=== PATIENT | female | born 2000 | race Caucasian/White ===

== ENCOUNTER → 2021-09-02 | Outpatient (CLI) | payer OTHER ==
--- NOTE | 2021-09-02 14:55 | US ---
EXAMINATION TYPE: US pelvic complete DATE OF EXAM: 09/02/2021 COMPARISON: NONE CLINICAL HISTORY: N92.6 Irregular menstruation. Pt states irregular menses TECHNIQUE: Transabdominal (TA). Transabdominal sonographic images of the pelvis were acquired. Date of LMP: 08/06/2021 EXAM MEASUREMENTS: Uterus: 9.1 x 3.2 x 4.7 cm Endometrial Stripe: 0.5 cm Right Ovary: 3.7 x 3.5 x 2.0 cm Left Ovary: 4.3 x 2.5 x 2.4 cm 1. Uterus: Anteverted wnl 2. Endometrium: wnl 3. Right Ovary: Follicles are noted. 4. Left Ovary: Follicles are noted. 5. Bilateral Adnexa: wnl 6. Posterior cul-de-sac: wnl IMPRESSION: Unremarkable pelvic ultrasound
== END | disposition home or self-care (01) ==
LOC: RADUSWWP 12:33
PROVIDERS: ATTEND Obstetrics & Gynecology
DX: N92.6 Irregular menstruation, unspecified (principal)
CPT/HCPCS: 76856

== ENCOUNTER → 2021-12-30 | Outpatient (CLI) | payer OTHER ==
--- NOTE | 2021-12-30 10:41 | US ---
EXAMINATION TYPE: Transabdominal DATE OF EXAM: 12/30/2021 10:27 AM COMPARISON: NONE CLINICAL HISTORY: Z36.89 CONFIRM GESTATIONAL AGE. Dates EXAM PERFORMED: Transabdominal (TA) EXAM MEASUREMENTS: GESTATIONAL AGE / DATING Physician Established: Not yet established Dates by LMP: (11 weeks/6 days) EDC: 07/15/2022 Dates by First Scan: No previous this is first scan Dates by Current Scan for: (10 weeks/3 days) EDC: 07/15/2022 MATERNAL ANATOMY Uterus: 12.1 x 8.3 x 6.8 cm Right Ovary: 2.8 x 1.8 x 1.8 cm Left Ovary: 3.5 x 2.0 x 2.1 cm Post CDS / Adnexa: no free fluid Presence of free fluid: no Presence of corpus luteal cyst: no Presence of subchorionic bleed: no GESTATION / SURVEY CRL: 3.4 cm (10 weeks/3 days) MSD: seen, not measured Yolk Sac (normal less than 6mm): 3.4 mm Heart Rate: 169 bpm Rhythm: Normal IUP: Viable IUP Nuchal Translucency 10-14wks (normal less than 3mm): 0.6 mm Age Appropriate Anatomy Cord Insertion: Too early to visualize Limbs: Visualized Calvarium: Visualized Date of LMP: 10/08/2021, G1 Beta HcG (if available): Not available at this time Single live IUP measuring 10 weeks 3 days. IMPRESSION: 1. Single intrauterine gestation estimated at 10 weeks 3 days gestation based on crown-rump length. C ardiac activity measures 169 bpm.
== END | disposition home or self-care (01) ==
LOC: RADUSWWP 09:59
PROVIDERS: ATTEND Obstetrics & Gynecology
DX: Z36.89 Encounter for other specified antenatal screening (principal); Z3A.10 10 weeks gestation of pregnancy
CPT/HCPCS: 76801; 76813

== ENCOUNTER 2022-07-25 14:11 | Inpatient (IN) | payer OTHER ==
[2022-07-25] MEDS ORDERED: LIDOCAINE 0.5% (PF) 5 MG/ML (50 ML SDV) SQ PRN (15:04)
[2022-07-25] MEDS ORDERED: CARBOPROST TROMETHAMINE 250 MCG/ML 1 ML AMP IM PRN (15:04)
[2022-07-25] MEDS ORDERED: METHYLERGONOVINE 0.2 MG/ML 1 ML AMP IM PRN (15:04)
[2022-07-25] MEDS ORDERED: OXYTOCIN 10 UNIT/ML 1 ML VIAL IM PRN (15:04)
[2022-07-25] MEDS ORDERED: TERBUTALINE 1 MG/ML VIAL SQ PRN (15:04)
[2022-07-25] MEDS ORDERED: LACTATED RINGERS 1,000 ML IV SCH (15:15)
[2022-07-25 16:37] LABS: Basophils % (A) 0 %; Eosinophils # (A) 0.1 k/uL (0-0.7); Eosinophils % (A) 0 %; HCT 36.4 % (34.0-46.0); HGB 12.1 gm/dL (11.4-16.0); Lymphocytes # (A) 1.2 k/uL (1.0-4.8); Lymphocytes % (A) 8 %; MCH 28.7 pg (25.0-35.0); MCHC 33.2 g/dL (31.0-37.0); MCV 86.6 fL (80.0-100.0); Mean Platelet Volume 9.9; Monocytes # (A) 0.6 k/uL (0-1.0); Monocytes % (A) 4 %; Neutrophils # (A) 13.5 k/uL (1.3-7.7); Neutrophils % (A) 87 %; Platelet Count 207 k/uL (150-450); RDW 13.4 % (11.5-15.5); WBC 15.6 k/uL (3.8-10.6)
[2022-07-25] MEDS: BUTORPHANOL 1 MG/ML 1 ML VIAL IV PRN ×2 (17:06→19:10)
--- NOTE | 2022-07-25 19:23 | P.HPOB ---
History of Present Illness H&P Date: 07/25/22 Chief Complaint: Contractions. This patient is a pleasant 22-year-old 1 para 0 female estimated date of confinement 07/24/2022 estimated gestational age 40 and one sevenths weeks who presents to labor and delivery with complaints of painful contractions. Patient was seen in the office yesterday by Dr. Headley was found to be 1 cm dilated and is now 3 cm dilated early labor. care complicated by marginal previa earlier in the which did resolve. appears otherwise uncomplicated. Review of Systems Genitourinary: Reports Menstruation: Reports amenorrhea Past Medical History Past Medical History: No Reported History History of Any Multi-Drug Resistant Organisms: None Reported Past Surgical History: No Surgical Hx Reported Past Anesthesia/Blood Transfusion Reactions: No Reported Reaction Past Psychological History: No Psychological Hx Reported Smoking Status: Never smoker Past Alcohol Use History: None Reported Past Drug Use History: None Reported - Past Family History Father History Unknown: Yes Family Medical History: No Reported History Medications and Allergies Home Medications Medication Instructions Recorded Confirmed Type Vit No.179/Iron/Folic 1 each PO DAILY 07/25/22 07/25/22 History [ Tablet] Allergies Allergy/AdvReac Type Severity Reaction Status Date / Time No Known Allergies Allergy Verified 07/25/22 14:22 Exam Vital Signs Temp Pulse Resp BP 07/25/22 16:07 97.1 F L 85 14 115/65 Intake and Output 07/25/22 07/25/22 07/25/22 06:59 14:59 22:59 Other: Weight 74.843 kg 74.843 kg - OBG Physical Exam Abdomen: bowel sounds normal, no diffuse tenderness, no bruit present, no guarding noted, no hepatomegaly, no splenomegaly, no mass Vulva: both: normal Vagina: normal moisture, no discharge Cervix: Cervix is 3-4 cm dilated with thick meconium-stained fluid Uterus: enlarged Results labs show she is A positive, rubella immune, hepatitis BE's negative, HIV is nonreactive, RPR is nonreactive, group B strep was negative Result Diagrams: 07/25/22 15:22 Abnormal Lab Results - Last 24 Hours (Table) 07/25/22 Range/Units 15:22 WBC 15.6 H (3.8-10.6) k/uL Neutrophils # 13.5 H (1.3-7.7) k/uL Assessment and Plan Assessment: This is a pleasant 22-year-old 1 para 0 female 40 and one sevenths weeks gestation in early active labor. Patient also has meconium-stained amniotic fluid with category 1 heart tones at this time. Plan is anticipate vaginal delivery. I did discuss pain control options with the patient and she states that this time she only wants Stadol. (1) Postmaturity , 40-42 weeks gestation Current Visit: Yes Status: Acute Code(s): O48.0 - POST-TERM SNOMED Code(s): 77322597033258 (2) Normal labor Current Visit: Yes Status: Acute Code(s): O80 - ENCOUNTER FOR FULL-TERM UNCOMPLICATED DELIVERY; Z37.9 - OUTCOME OF DELIVERY, UNSPECIFIED SNOMED Code(s): 91555831 (3) Meconium in amniotic fluid Current Visit: Yes Status: Acute Code(s): P96.83 - MECONIUM STAINING SNOMED Code(s): 766569353
--- NOTE | 2022-07-25 20:11 | P.PN ---
Progress Note - Text Progress Note Date: 07/25/22 Patient has progressed to 8-9 cm -1 station. She continues to decline any pain medications other than Stadol. She is unfortunately quite out of control and wanting to push. I did explain to her that pushing without being completely dilated will cause swelling of the cervix. Of note she did have an ultrasound yesterday in the office were Dr. Headley noted the head to be occiput posterior presentation. I explained this once again to the patient. She understands that if we have any concerns for heart tones or she does not progress with the cervix continues to swell it would require section for delivery. heart tones are reassuring at this time. We'll continue to watch closely
[2022-07-25] MEDS ORDERED: bisacodyL 10 MG SUPP RECTAL PRN (21:08)
[2022-07-25] MEDS ORDERED: diphenhydrAMINE 50 MG/ML 1 ML VIAL IVP PRN (21:08)
[2022-07-25] MEDS ORDERED: BENZOCAINE/MENTHOL SPRAY 1 GM/SPRAY AEROSOL TOPICAL PRN (21:08)
[2022-07-25] MEDS ORDERED: HYDROCORTISONE 2.5% RECTAL CREAM 30 GM TUBE RECTAL PRN (21:08)
[2022-07-25] MEDS ORDERED: LANOLIN CREAM 5 GM TUBE TOPICAL PRN (21:08)
[2022-07-25] MEDS ORDERED: diphenhydrAMINE 25 MG CAP PO PRN (21:08)
[2022-07-25] MEDS ORDERED: ZOLPIDEM 5 MG TAB PO PRN (21:08)
[2022-07-25] MEDS ORDERED: ACETAMINOPHEN TAB 325 MG TAB PO PRN (21:08)
[2022-07-25] MEDS ORDERED: SIMETHICONE 80 MG CHEWABLE PO PRN (21:08)
[2022-07-25] MEDS ORDERED: OXYTOCIN 30 UNITS/500 ML NS 30 UNIT in SALINE 1 500ML.BAG IV SCH (21:15)
--- NOTE | 2022-07-25 21:15 | P.PROBDLV ---
Vaginal Delivery Note - . Vaginal Delivery Note: Normal spontaneous vaginal delivery viable female Apgars 9 and 9 delivery time is 2044 hrs. Please see dictated H&P for intimate details of this patient's admission. Brief summary this is a pleasant 22-year-old 1 para 0 female 40 and one sevenths weeks gestation who is admitted to labor and delivery with complaints of regular painful contractions. Patient was 1 cm dilated in the office yesterday and is 3 cm dilated on admission. She has artificial rupture membranes for thick meconium-stained fluid. heart tones are category 1. Patient requests only Stadol for pain control on this is given 2 doses. She does not get good relief with this is quite out of control. head is thought to be occiput posterior presentation. At approximately 9 cm she states that she's needs to push. And cervix is swelling. At this time she is instru cted not to push and multiple position changes are employed to rotate the infant's head. 's head does rotate to occiput anterior and she gets to complete. She pushes for approximately 15 minutes and pushes the head to the perineum. It is quite evident that she has restriction of the perineum therefore the posterior perineum is infiltrated with 1% lidocaine and a midline episiotomy is made. We then have controlled delivery of the 's head over the intact perineum. Mouth and nares are bulb suctioned. There is no evidence of a nuchal cord. At this time patient pushes and the anterior shoulder does not release. She is instructed to breathe at this time and placed and Artem position. Again she is instructed to push the shoulder does release after approximately 1 minute. Following this we have delivery of the posterior shoulder and rest this 's body. This is consistent with a moderate shoulder dystocia. The only room maneuver required to relieve it however was the Artem position. After delivery of the infant the umbilical cord is doubly clamped and cut. The infant does have spontaneous respiration and good cry and grossly appears normal. No extremity or other deficits are noted. Anesthesia was present for delivery secondary to meconium. The is taken to the warmer. The placenta is then spontaneously delivered intact. She does have some mild uterine atony which responded to uterine massage. Inspection of the perineum shows a second-degree laceration which was repaired easily with 3-0 Vicryl in the usual fashion. Excellent reapproximation is noted. All counts are correct 3. There is a moderate shoulder dystocia without sequela, otherwise no complications. Infant and mother are stable delivery room.
[2022-07-25 21:56] VITALS: RESP 16
--- NOTE | 2022-07-26 06:49 | P.PNOBGVD ---
Subjective - Subjective Patient reports: Reports appetite normal, Reports voiding normally, Reports pain well controlled, Reports ambulating normally : doing well Objective - Latest Vital Signs Latest vital signs: Vital Signs Temp Pulse Resp BP Pulse Ox 07/26/22 04:00 98.0 F 94 16 110/62 99 07/25/22 23:10 86 16 119/62 07/25/22 22:40 71 16 108/56 07/25/22 22:05 82 16 93/53 07/25/22 21:50 98.0 F 96 16 101/57 07/25/22 21:35 98.0 F 82 16 108/52 100 07/25/22 21:20 88 16 109/53 99 07/25/22 21:05 97 16 143/60 96 07/25/22 16:07 97.1 F L 85 14 115/65 Intake and Output 07/25/22 07/25/22 07/26/22 14:59 22:59 06:59 Output Total 100 125 Balance -100 -125 Output: Urine 100 Output, Quantitative 125 Blood Loss Other: # Voids 1 Weight 74.843 kg 74.843 kg - Exam Lungs: bilateral: normal Chest: Normal S1, Normal S2 Extremities: Present: normal Abdomen: Present: normal appearance, soft Uterus: Present: normal, firm - Labs Labs: Abnormal Lab Results - Last 24 Hours (Table) 07/25/22 Range/Units 15:22 WBC 15.6 H (3.8-10.6) k/uL Neutrophils # 13.5 H (1.3-7.7) k/uL Assessment and Plan Assessment: Post day #1. Patient is resting without complaints. Vital signs are stable she's afebrile. Uterus is firm nontender and she is having normal lochia. My impression this is a normal course. Plan is to continue routine care most likely will go home tomorrow. (1) Postmaturity , 40-42 weeks gestation Current Visit: Yes Status: Acute Code(s): O48.0 - POST-TERM SNOMED Code(s): 95085570780112 (2) Normal labor Current Visit: Yes Status: Acute Code(s): O80 - ENCOUNTER FOR FULL-TERM UNCOMPLICATED DELIVERY; Z37.9 - OUTCOME OF DELIVERY, UNSPECIFIED SNOMED Code(s): 46899651 (3) Meconium in amniotic fluid Current Visit: Yes Status: Acute Code(s): P96.83 - MECONIUM STAINING SNOMED Code(s): 346280388
[2022-07-26] MEDS: SENNOSIDES-DOCUSATE SODIUM 1 EACH TAB PO SCH ×2 (08:04→20:15)
[2022-07-26 08:07] LABS: Basophils % (A) 0 %; Eosinophils # (A) 0.2 k/uL (0-0.7); Eosinophils % (A) 1 %; HCT 35.1 % (34.0-46.0); HGB 11.5 gm/dL (11.4-16.0); Lymphocytes # (A) 1.5 k/uL (1.0-4.8); Lymphocytes % (A) 8 %; MCH 29.3 pg (25.0-35.0); MCHC 32.6 g/dL (31.0-37.0); MCV 89.8 fL (80.0-100.0); Mean Platelet Volume 9.3; Monocytes # (A) 0.9 k/uL (0-1.0); Monocytes % (A) 5 %; Neutrophils % (A) 85 %; Platelet Count 200 k/uL (150-450); RBC 3.91 m/uL (3.80-5.40); RDW 13.5 % (11.5-15.5); WBC 18.8 k/uL (3.8-10.6)
[2022-07-26] MEDS: IBUPROFEN 600 MG TAB PO PRN (20:14)
[2022-07-27 00:06] VITALS: TEMP 98.2
--- NOTE | 2022-07-27 04:47 | P.PNOBGVD ---
Subjective - Subjective Patient reports: Reports appetite normal, Reports voiding normally, Reports pain well controlled, Reports ambulating normally : doing well Objective - Latest Vital Signs Latest vital signs: Vital Signs Temp Pulse Resp BP Pulse Ox 07/27/22 00:00 98.2 F 78 16 104/68 99 07/26/22 20:18 98.3 F 78 16 109/65 98 07/26/22 16:00 98 F 95 16 94/76 07/26/22 08:00 98.5 F 92 16 108/62 Intake and Output 07/26/22 07/26/22 07/27/22 14:59 22:59 06:59 Other: # Voids 2 2 2 - Exam Lungs: bilateral: normal Chest: Normal S1, Normal S2 Extremities: Present: normal Abdomen: Present: normal appearance, soft Uterus: Present: normal, firm - Labs Labs: Abnormal Lab Results - Last 24 Hours (Table) 07/26/22 Range/Units 08:00 WBC 18.8 H (3.8-10.6) k/uL Neutrophils # 16.0 H (1.3-7.7) k/uL Assessment and Plan Assessment: day #2. Patient resting without complaints wishes to go home. Vital signs are stable she is afebrile. Uterus is firm nontender and she is having normal lochia. Plan today is to continue routine care and discharge home later today (1) Postmaturity , 40-42 weeks gestation Current Visit: Yes Status: Acute Code(s): O48.0 - POST-TERM SNOMED Code(s): 21385685523366 (2) Normal labor Current Visit: Yes Status: Acute Code(s): O80 - ENCOUNTER FOR FULL-TERM UNCOMPLICATED DELIVERY; Z37.9 - OUTCOME OF DELIVERY, UNSPECIFIED SNOMED Code(s): 86482639 (3) Meconium in amniotic fluid Current Visit: Yes Status: Acute Code(s): P96.83 - MECONIUM STAINING SNOMED Code(s): 325616556
--- NOTE | 2022-07-27 04:53 | P.DS ---
Providers Date of admission: 07/25/22 15:10 Expected date of discharge: 07/27/22 Attending physician: Sharron Headley Primary care physician: Stated None - Discharge Diagnosis(es) (1) Postmaturity , 40-42 weeks gestation Current Visit: Yes Status: Acute (2) Normal labor Current Visit: Yes Status: Acute (3) Meconium in amniotic fluid Current Visit: Yes Status: Acute Hospital Course: Please see dictated H&P for intimate details of this patient's admission. Brief summary this is a 22-year-old 1 para 0 female 40 and one sevenths weeks gestation admitted to labor and delivery in active labor. Patient had meconium- stained fluid was on have a vaginal delivery of viable female . Deliveries, K by moderate shoulder dystocia, please see dictated delivery note. There is no sequelae from this. day #2 patient's wish to go home was felt be stable for discharge home follow up with Dr. Headley 6 weeks. Procedures: Normal spontaneous vaginal delivery Patient Condition at Discharge: Good Plan - Discharge Summary New Discharge Prescriptions: New Ibuprofen [Motrin] 600 mg PO Q6HR PRN #30 tab PRN Reason: Mild Pain (Scale 1 To 3) No Action Vit No.179/Iron/Folic [ Tablet] 1 each PO DAILY Discharge Medication List Vit No.179/Iron/Folic [ Tablet] 1 each PO DAILY 07/25/22 [History] Ibuprofen [Motrin] 600 mg PO Q6HR PRN #30 tab 07/27/22 [Rx] Follow up Appointment(s)/Referral(s): Sharron Headley DO [Doctor of Osteopathic Medicine] - 6 Weeks Patient Instructions/Handouts: Vaginal Delivery (DC) Activity/Diet/Wound Care/Special Instructions: No intercourse or anything per vagina for 6 weeks. Please call if any fever, chills, excessive vaginal bleeding, and/or abdominal pain Discharge Disposition: HOME SELF-CARE
[2022-07-27] MEDS: SENNOSIDES-DOCUSATE SODIUM 1 EACH TAB PO SCH (08:46)
[2022-07-27] MEDS: IBUPROFEN 600 MG TAB PO PRN (09:21)
[2022-07-27 09:41] VITALS: BP 102/64; PULSE 80
--- NOTE | 2022-07-30 06:30 | P.MSEPDOC ---
Presenting Problems - Arrival Data Date of Arrival on Unit: 07/25/22 Time of Arrival on Unit: 15:00 Mode of Transport: Ambulatory - Complaint OB-Reason for Admission/Chief Complaint: Possible Onset of Labor Medical History - Information : 1 Para: 0 Term: 0 : 0 Abortions: Spontaneous or Elective: 0 Number of Living Children: 0 - Gestational Age Gestational Age by CORA (wks/days): 40 Weeks and 1 Days Review of Systems - Review of Systems Constitutional: No problems Breast: No problems ENT: No problems Cardiovascular: No problems Respiratory: No problems Gastrointestinal: No problems Genitourinary: No problems Musculoskeletal: No problems Neurological: No problems Skin: No problems Vital Signs - Temperature Temperature: 98.2 F Temperature Source: Axillary - Pulse Right Brachial Pulse Rate: 80 Pulse Assessment Method: Automatic Cuff - Respirations Respiratory Rate: 16 Oxygen Delivery Method: Room Air - Blood Pressure Right Arm Blood Pressure: 102/64 Blood Pressure Mean: 76 Blood Pressure Source: Automatic Cuff Medical Screen Scoring - Cervical Exam Dilation (cm): 3 Effacement (%): 70 Station: -2 Membranes: Intact - Uterine Contractions Frequency From (mins): 3 Frequency To (mins): 5 Duration From (seconds): 60 Duration To (seconds): 80 Intensity: Moderate Resting: Soft to palpation - Assessment - Baby A Baseline FHR: 135 Heart Rate - NICHD Category: Category I (Normal) NST: Reactive Physician Notification - Physician Notified Physician Notified Date: 07/25/22 Physician Notified Time: 14:30 Physician: Marco Mendoza New Order Received: Yes - Notification Comment Comment: admit for labor Maternal Triage Index - Maternal Triage Index Presenting for scheduled procedure w/no complaint: No - Stat/Priority 1 Stat Priority 1: No - Urgent/Priority 2 Urgent Priority 2: No - Prompt/Priority 3 Prompt Priority 3: No - Non-Urgent/Priority 4 Non-Urgent Priority 4: Yes Criteria Met for Priority 4: active labor Disposition - Disposition OB Disposition: Admit Discharge Date: 07/27/22 Discharge Time: 09:30 I agree with the RN Medical Screening Exam: Yes Case reviewed; plan agreed upon as documented in EMR&OBIX.: Yes Diagnosis: ENCOUNTER FOR FULL-TERM UNCOMPLICATED DELIVERY
== END 2022-07-27 09:30 | disposition home or self-care (01) | DRG 807 ==
LOC: FBPOP 14:11 → 4FBP 15:10
PROVIDERS: ADMIT Obstetrics & Gynecology; ATTEND Obstetrics & Gynecology
PROC: 10E0XZZ Delivery of Products of Conception, External Approach (ICD-10-PCS; principal; 2022-07-25)
PROC: 0W8NXZZ Division of Female Perineum, External Approach (ICD-10-PCS; principal; 2022-07-25)
PROC: 0KQM0ZZ Repair Perineum Muscle, Open Approach (ICD-10-PCS; principal; 2022-07-25)
PROC: 10907ZC Drainage of Amniotic Fluid, Therapeutic from Products of Conception, Via Natural or Artificial Opening (ICD-10-PCS; principal; 2022-07-25)
DX: O48.0 Post-term pregnancy (principal); Z37.0 Single live birth; O66.0 Obstructed labor due to shoulder dystocia; O77.0 Labor and delivery complicated by meconium in amniotic fluid; Z3A.40 40 weeks gestation of pregnancy; O62.2 Other uterine inertia; O70.1 Second degree perineal laceration during delivery
CPT/HCPCS: 59025; 85025; 86850; 86900; 86901; 99213